=== PATIENT | male | born 1985 | race Caucasian/White ===

== ENCOUNTER 2017-07-11 09:48 | Emergency (ER) | payer OTHER ==
[~2017-07-11] VITALS: Ht 177.8 cm; Wt 74.8 kg
== END 2017-07-11 10:01 | disposition left against medical advice (07) ==
LOC: ER 09:48
DX: Z53.21 Procedure and treatment not carried out due to patient leaving prior to being seen by health care provider (principal)
CPT/HCPCS: 99281

== ENCOUNTER → 2024-02-03 | Outpatient (CLI) | payer OTHER ==
[2024-02-10 14:41] LABS: CALCIUM, URINE - PER 24H 475 mg/d (100-250); CHLORIDE, URINE - PER 24H 215 mmol/d (140-250); CHLORIDE, URINE - PER VOLUME 86 mmol/L; CITRIC ACID, URINE - PER 24H 860 mg/d (320-1240); CITRIC ACID,URINE - PER VOLUME 344 mg/L; CREATININE, URINE - PER 24H 2475 mg/d (1000-2500); CREATININE, URINE - PER VOLUME 99 mg/dL; HOURS COLLECTED 24 hr; MAGNESIUM, URINE - PER VOLUME 4.2 mg/dL; MAGNESIUM, URINE PER 24H 105 mg/d (12-199); OXALATE, URINE - PER 24H 42 mg/d (16-49); OXALATE, URINE - PER VOLUME 17 mg/L; PHOSPHORUS, URINE - PER 24H 1375 mg/d (400-1300); PHOSPHORUS, URINE - PER VOLUME 55 mg/dL; POTASSIUM, URINE - PER 24H 88 mmol/d (25-125); POTASSIUM, URINE - PER VOLUME 35 mmol/L; SODIUM, URINE - PER 24H 230 mmol/d (51-286); SODIUM, URINE - PER VOLUME 92 mmol/L; SULFATE, URINE - PER 24H 40 mmol/d (6-30); SULFATE, URINE - PER VOLUME 16 mmol/L; TOTAL VOLUME 2500 mL; URIC ACID, URINE - PER 24H 772 mg/d (250-750); URIC ACID, URINE - PER VOLUME 30.9 mg/dL; URINE SUPERSATURATION INTERP Abnormal; URINE SUPERSATURATION, CAHPO4 3.61; URINE SUPERSATURATION, CAOX 7.68; URINE SUPERSATURATION, UA CALC 0.31
== END | disposition home or self-care (01) ==
LOC: LAB SHORT 10:03 → LAB 10:03
PROVIDERS: Urology
DX: N20.0 Calculus of kidney (principal)
CPT/HCPCS: 81003; 81050; 82131; 82140; 82340; 82436; 82507; 82570; 83735; 83935; 83945; 84105; 84133; 84300; 84392; 84560